=== PATIENT | male | born 2000 | race African-American/Black ===

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

== ENCOUNTER 2022-06-25 15:21 | Emergency (ER) | payer OTHER, SELFPAY | END 2022-06-25 16:25 | disposition home or self-care (01) | LOC: MADERS 15:21 | DX: S60.032A Contusion of left middle finger without damage to nail, initial encounter (principal); E11.9 Type 2 diabetes mellitus without complications; X58.XXXA Exposure to other specified factors, initial encounter | CPT/HCPCS: 29130 ==

== ENCOUNTER 2024-06-26 09:46 | Emergency (ER) | payer SELFPAY ==
[2024-06-26] MEDS ORDERED: Bacitracin 1 PK ONE (10:16)
[2024-06-26] MEDS ORDERED: Acetaminophen 325 MG TAB ONE (10:16)
[2024-06-26] MEDS ORDERED: Boostrix 0.5 ML (Tdap) VIAL (>/=7 yrs of age) ONE (10:17)
== END 2024-06-26 11:40 | disposition home or self-care (01) ==
LOC: MADERS 09:46
DX: S40.022A Contusion of left upper arm, initial encounter (principal); Z23 Encounter for immunization; V49.9XXA Car occupant (driver) (passenger) injured in unspecified traffic accident, initial encounter
CPT/HCPCS: 90471; 90715; 94760

== ENCOUNTER 2025-07-19 17:20 | Emergency (ER) | payer SELFPAY | END 2025-07-19 18:07 | disposition home or self-care (01) | LOC: MADERS 17:20 | DX: R11.2 Nausea with vomiting, unspecified (principal); E11.65 Type 2 diabetes mellitus with hyperglycemia; R00.0 Tachycardia, unspecified | CPT/HCPCS: 87426; 99284 ==

== ENCOUNTER 2025-11-05 15:25 | Emergency (ER) | payer SELFPAY ==
[2025-11-05] MEDS ORDERED: Ibuprofen 800 MG TAB ONE (16:58)
== END 2025-11-05 16:58 | disposition home or self-care (01) ==
LOC: MADERS 15:25
DX: J11.1 Influenza due to unidentified influenza virus with other respiratory manifestations (principal); E11.9 Type 2 diabetes mellitus without complications
CPT/HCPCS: 87428; 99284